=== PATIENT | female | born 2000 | race Caucasian/White ===

== ENCOUNTER 2022-08-07 19:20 | Emergency (ER) | payer BC, OTHER | END 2022-08-07 20:30 | disposition home or self-care (01) | LOC: KA.ED 19:20 | DX: S40.012A Contusion of left shoulder, initial encounter (principal); S10.93XA Contusion of unspecified part of neck, initial encounter; R07.89 Other chest pain; Z88.1 Allergy status to other antibiotic agents; Z88.0 Allergy status to penicillin; V40.5XXA Car driver injured in collision with pedestrian or animal in traffic accident, initial encounter; Y92.410 Unspecified street and highway as the place of occurrence of the external cause | CPT/HCPCS: 71045; 73000-LT; 73030-LT; 99284 ==